=== PATIENT | male | born 1940 | race Caucasian/White ===

== ENCOUNTER → 2016-11-30 | Outpatient (CLI) | payer MEDICARE, BC ==
--- NOTE | ~2016-11-30 | SS ---
ADMIT: 11/30/2016 RM/LOC: [facility] MR#: [id number] [address] [id number] LEELAGERARD Karie [address] [place] [address] Sleep Study SEX: M AGE: 76 : 1940 STUDY DATE: 11/30/2016 CLINICAL HISTORY: A 76-year-old male, body mass index of 29.9, 72 inches tall, 220 pounds, known history of snoring, fatigue, undergoing evaluation for obstructive sleep apnea. TECHNICAL DESCRIPTION: Diagnostic polysomnogram performed on night of 11/30/2016, attended by a trained time study technologist. DIAGNOSTIC POLYSOMNOGRAM FINDINGS: SLEEP: Total time in bed is 364.5 minutes, total sleep time 242.5 minutes, sleep efficiency 66.5%. 49% of time was spent in stage II sleep, 17.7% of time was spent in stage REM. BREATHING: No clear evidence of obstructive sleep apnea, apnea 0.2. OXYGEN SATURATION: Mean sleeping 93%. CARDIAC: Average heart rate is 72 beats per minute. MOVEMENTS/POSITION: During the study, the patient slept predominantly in the lateral position. No supine sleep was seen with periodic leg movement index of 47. IMPRESSION: No clear evidence of obstructive sleep apnea. Apnea-hypopnea index is 0.2. No indication for CPAP therapy. Of note, no significant supine sleep was seen during the study. No REM sleep was seen during the study. Significant leg movements were noted during the study. Clinical correlation needed. Josesito Rascon MD/ sarah JOB #: [id number] CC: Sid Norris MD, Attending Physician Sid Norris MD, Family Physician Sid Norris MD
== END | disposition home or self-care (01) ==
LOC: RESC 20:04
DX: G47.30 Sleep apnea, unspecified (principal)